=== PATIENT | male | born 1990 | race Caucasian/White ===

== ENCOUNTER 2021-07-27 08:39 | Emergency (ER) | payer BC ==
[~2021-07-27] VITALS: Ht 177.8 cm; Wt 99.7 kg
[2021-07-27 09:05] VITALS: BP 121/85
--- NOTE | 2021-07-27 10:37 | ED General ---
General Chief Complaint: COVID19 Suspect/Confirmed Stated Complaint: FATIGUE,FEVER,CHILLS,WEAKNESS,COUGH Nursing Triage Note: ARRIVES TO ED STATES HE NEEDSS A COVID TEST AND FEELS HE IS HAVING EMERGENT SYMPTOMS. C/O FATIGUE BELL HAD FEVER OF 100.5 LAST NIGHT, VERBALIZES HE HAS NOT TAKEN ANY TYLENOL OR IBUPROFEN BECAUSE HE HAS "TO BE FEVER FREE WITH OUT USING MEDICINE BEFORE HE CAN GO BACK TO WORK". Source of Information: Patient Exam Limitations: No Limitations (ROBB MCKEON APRN) History of Present Illness Date Seen by Provider: Jul 27, 2021 Time Seen by Provider: 10:00 Initial Comments Complains of fever and fatigue since last night unvaccinated. Timing/Duration: 1-2 Days Severity: Moderate Associated Systoms: Cough, Headaches (ROBB CMKEON APRN) Allergies and Home Medications Patient Home Medication List Home Medication List Reviewed: Yes (ROBB MCKEON APRN) Review of Systems Review of Systems Constitutional: see HPI, fever EENTM: see HPI Respiratory: see HPI, cough Cardiovascular: no symptoms reported Genitourinary: no symptoms reported Musculoskeletal: no symptoms reported Skin: no symptoms reported Psychiatric/Neurological: No Symptoms Reported Hematologic/Lymphatic: No Symptoms Reported Immunological/Allergic: no symptoms reported (ROBB MCKEON APRN) Past Sckqbnb-Deygrq-Zubftz Hx Patient Social History Tobacco Use?: Yes Smoking Status: Heavy Tobacco Smoker Use of E-Cig and/or Vaping dev: No Substance use?: No Alcohol Use?: Yes Alcohol Frequency: Once in a while Pt feels they are or have been: No (ROBB MCKEON APRN) Immunizations Up To Date Influenza Vaccine Up-to-Date: No; Not Current First/Initial COVID19 Vaccinat: DECLINED (ROBB MCKEON APRN) Physical Exam Vital Signs Vital Signs - First Documented 07/27/21 09:05 Temp 36.8 Pulse 96 Resp 18 B/P (MAP) 121/85 (97) Pulse Ox 96 O2 Delivery Room Air (THONY NAJERA MD) Vital Signs Capillary Refill : Less Than 3 Seconds (ROBB MCKEON APRN) Height, Weight, BMI Height: '" Weight: lbs. oz. kg; 31.00 BMI Method: General Appearance: No Apparent Distress, WD/WN Eyes: Bilateral Eye Normal Inspection, Bilateral Eye PERRL Neck: Full Range of Motion, Normal Inspection Respiratory: Normal Breath Sounds, No Accessory Muscle Use, No Respiratory Distress Cardiovascular: Regular Rate, Rhythm, Normal Peripheral Pulses Gastrointestinal: Normal Bowel Sounds, Non Tender, Soft Extremity: Normal Capillary Refill, Normal Inspection Neurologic/Psychiatric: Alert, Oriented x3 Skin: Normal Color, Warm/Dry (ROBB MCKEON APRN) Progress/Results/Core Measures Suspected Sepsis SIRS Temperature: Pulse: 96 Respiratory Rate: 18 Blood Pressure 121 /85 Mean: 97 (ROBB MCKEON APRN) Results/Orders Lab Results Laboratory Tests Test 07/27/21 09:14 Range/Units Influenza Type A (RT-PCR) Not Detected Not Detecte Influenza Type B (RT-PCR) Not Detected Not Detecte SARS-CoV-2 RNA (RT-PCR) Detected H Not Detecte (THONY NAJERA MD) My Orders Orders - THONY NAJERA MD Covid 19 Inhouse Test (07/27/21 08:45) Influenza A And B By Pcr (07/27/21 08:45) (THONY NAJERA MD) Vital Signs/I&O 07/27/21 07/27/21 09:05 10:44 Temp 36.8 Pulse 96 97 Resp 18 20 B/P (MAP) 121/85 (97) Pulse Ox 96 97 O2 Delivery Room Air Room Air (THONY NAJERA MD) Vital Signs/I&O Capillary Refill : Less Than 3 Seconds (ROBB MCKEON APRN) Blood Pressure Mean: 97 Departure Impression Primary Impression: COVID-19 Disposition: 01 HOME, SELF-CARE Condition: Stable Departure-Patient Inst. Decision time for Depature: 10:35 (ROBB MCKEON APRN) Referrals: NO,LOCAL PHYSICIAN (PCP/Family) Primary Care Physician Patient Instructions: COVID-19 Overview Add. Discharge Instructions: 1. Tylenol and ibuprofen for fever or pain. Expect to be ill for 1 to 2 weeks. Cough medicine as directed. Per the CDC's new guidelines after 5 days of home quarantine you can return to work as long as you wear mask. 10 days of quarantine however is a better and safer idea. All discharge instructions reviewed with patient and/or family. Voiced understanding. Work/School Note: Work Release Form Date Seen in the Emergency Department: Jul 27, 2021 Return to Work: Jul 31, 2021 ATTENDING PHYSICIAN NOTE: I was physically present as attending physician in the emergency department during the care of this patient, but I was not directly involved in the decision making or delivery of care for this patient. (THONY NAJERA MD) ROBB MCKEON APRN Jul 27, 2021 10:37 THONY NAJERA MD Jul 27, 2021 19:11
== END 2021-07-27 10:44 | disposition home or self-care (01) ==
LOC: ER 08:44
DX: U07.1 COVID-19 (principal); F17.290 Nicotine dependence, other tobacco product, uncomplicated
CPT/HCPCS: 87636; 99283

== ENCOUNTER 2021-12-09 16:27 | Emergency (ER) | payer BC ==
[~2021-12-09] VITALS: Ht 172 cm; Wt 113.0 kg
[2021-12-09] MEDS ORDERED: NS IV 1000 ML 1,000 ML IV STA (16:38)
[2021-12-09] MEDS ORDERED: fentaNYL INJ 100 MCG/2 ML AMP IVP STA (16:38)
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
[2021-12-09 16:45] LABS: BASOPHILS # (AUTO) 0.1 10^3/uL (0.0-0.1); BASOPHILS % (AUTO) 1 % (0-10); EOSINOPHILS # (AUTO) 0.1 10^3/uL (0.0-0.3); EOSINOPHILS % (AUTO) 1 % (0-10); HEMATOCRIT 48 % (40-54); HEMOGLOBIN 15.8 g/dL (13.3-17.7); LYMPHOCYTES # (AUTO) 2.8 10^3/uL (1.0-4.0); LYMPHOCYTES % (AUTO) 21 % (12-44); MEAN CORPUSCULAR HEMOGLOBIN 28 pg (25-34); MEAN CORPUSCULAR HGB CONC 33 g/dL (32-36); MEAN CORPUSCULAR VOLUME 84 fL (80-99); MEAN PLATELET VOLUME 10.1 fL (9.0-12.2); MONOCYTES % (AUTO) 8 % (0-12); NEUTROPHILS % (AUTO) 69 % (42-75); PLATELET COUNT 340 10^3/uL (130-400)
[2021-12-09 16:52] LABS: ALBUMIN 4.4 GM/DL (3.2-4.5)
[2021-12-09 16:53] LABS: POTASSIUM 3.9 MMOL/L (3.6-5.0)
[2021-12-09 16:54] LABS: CALCIUM 9.4 MG/DL (8.5-10.1)
[2021-12-09 16:55] LABS: TOTAL PROTEIN 7.5 GM/DL (6.4-8.2)
[2021-12-09 16:57] LABS: BILIRUBIN,TOTAL 0.3 MG/DL (0.1-1.0)
[2021-12-09 16:59] LABS: CREATININE SERUM 1.04 MG/DL (0.60-1.30)
[2021-12-09] MEDS ORDERED: TETANUS,DIPTH,PERTUSS P/F (BOOSTRIX) 0.5 ML VIAL IM ONE (17:00)
[2021-12-09] MEDS ORDERED: ONDANSETRON 4 MG/2 ML (SDV) Z0FRAN IVP ONE (17:30)
[2021-12-09] MEDS ORDERED: morphine INJ 10 MG/ML 1ML (SYR OR VIAL) IVP ONE (17:30)
[2021-12-09] MEDS ORDERED: ACHD5005 PO (18:00)
[2021-12-09 18:36] VITALS: BP 126/72
== END 2021-12-09 18:36 | disposition home or self-care (01) ==
LOC: EDUNIT# 16:27 → ER 16:29
DX: T24.212A Burn of second degree of left thigh, initial encounter (principal); T21.22XA Burn of second degree of abdominal wall, initial encounter; X11.1XXA Contact with running hot water, initial encounter
CPT/HCPCS: 36415; 80053; 85025; 90715

== ENCOUNTER 2022-11-03 15:32 | Emergency (ER) | payer BC ==
[~2022-11-03] VITALS: Ht 175.2 cm; Wt 113.0 kg
[~2022-11-03 15:32] MED LIST: ACHD5005 PO
[2022-11-03 16:14] LABS: BILIRUBIN,URINE NEGATIVE (NEGATIVE); CLARITY,URINE CLEAR; COLOR,URINE YELLOW; GLUCOSE, URINE (UA) NEGATIVE (NEGATIVE); KETONES,URINE NEGATIVE (NEGATIVE); LEUKOCYTE ESTERASE ,URINE NEGATIVE (NEGATIVE); NITRITE,URINE NEGATIVE (NEGATIVE); PH,URINE 7.5 (5-9); PROTEIN,URINE NEGATIVE (NEGATIVE)
[2022-11-03] MEDS ORDERED: LACTATED RINGERS 1,000 ML IV ONE (16:15)
[2022-11-03] MEDS ORDERED: KETOROLAC 30 MG/ML VIAL IVP ONE (16:15)
[2022-11-03 16:17] LABS: BASOPHILS # (AUTO) 0.1 10^3/uL (0.0-0.1); BASOPHILS % (AUTO) 0 % (0-10); EOSINOPHILS # (AUTO) 0.1 10^3/uL (0.0-0.3); EOSINOPHILS % (AUTO) 0 % (0-10); HEMATOCRIT 45 % (40-54); HEMOGLOBIN 15.1 g/dL (13.3-17.7); LYMPHOCYTES # (AUTO) 1.8 10^3/uL (1.0-4.0); LYMPHOCYTES % (AUTO) 11 % (12-44); MEAN CORPUSCULAR HEMOGLOBIN 28 pg (25-34); MEAN CORPUSCULAR HGB CONC 33 g/dL (32-36); MEAN CORPUSCULAR VOLUME 84 fL (80-99); MEAN PLATELET VOLUME 10.4 fL (9.0-12.2); MONOCYTES # (AUTO) 1.2 10^3/uL (0.0-1.0); MONOCYTES % (AUTO) 7 % (0-12); NEUTROPHILS % (AUTO) 82 % (42-75); PLATELET COUNT 278 10^3/uL (130-400); WHITE BLOOD COUNT 17.2 10^3/uL (4.3-11.0)
[2022-11-03 16:30] LABS: ALBUMIN 4.2 GM/DL (3.2-4.5); BACTERIA,URINE NEGATIVE /HPF; RBC,URINE RARE /HPF; WBC,URINE 0-2 /HPF
[2022-11-03 16:33] LABS: TOTAL PROTEIN 7.2 GM/DL (6.4-8.2)
[2022-11-03 16:34] LABS: BILIRUBIN,TOTAL 0.8 MG/DL (0.1-1.0)
[2022-11-03 16:36] LABS: CREATININE SERUM 1.08 MG/DL (0.60-1.30)
[2022-11-03 16:49] LABS: BAND NEUTROPHILS 0 %; BASOPHILS % (MANUAL) 0 %; EOSINOPHILS % (MANUAL) 0 %; LYMPHOCYTES % (MANUAL) 8 %; MONOCYTES % (MANUAL) 6 %; NEUTROPHILS % (MANUAL) 86 %; RBC MORPH NORMAL
--- NOTE | 2022-11-03 17:21 | ED GU-Male ---
General Chief Complaint: Fever-Adult/Adol Stated Complaint: FEVER, JOINT PAIN Nursing Triage Note: ARRIVES TO ROOM 1 WITH C/O GENERALIZED JOINT ACHES, FEVER AND DIFFICULTY /PAIN WITH URINATION. STATES STARTED THIS MORNING. VERBALIZES HAD A TEMPERATURE OF 104.3 AT HOME. Source: patient Exam Limitations: no limitations History of Present Illness Date Seen by Provider: Nov 03, 2022 Time Seen by Provider: 15:40 Allergies and Home Medications Allergies Coded Allergies: No Known Drug Allergies (Unverified , 12/09/21) Patient Home Medication List Hydrocodone/Acetaminophen (Hydrocodone-Acetamin 5-325 mg) 5 Mg-325 Mg Tablet, 1 TAB PO Q4H PRN for PAIN-MODERATE (5-7) Prescribed by: FADY QUISPE on 12/09/21 1800 Past Tejejyu-Tmihqh-Zyelpo Hx Patient Social History Tobacco Use?: No Use of E-Cig and/or Vaping dev: No Substance use?: No Alcohol Use?: No Pt feels they are or have been: No Immunizations Up To Date Influenza Vaccine Up-to-Date: Yes; Up-to-Date First/Initial COVID19 Vaccinat: DECLINED Second COVID19 Vaccination Herman: DECLINED Third COVID19 Vaccination Date: DECLINED Past Medical History Surgery/Hospitalization HX: PMH-DENIES SX-LT KNEE SCOPE, WISDOM TEETH Physical Exam Vital Signs Vital Signs - First Documented 11/03/22 15:40 Temp 37.6 Pulse 103 Resp 18 B/P (MAP) 141/84 (103) Pulse Ox 97 O2 Delivery Room Air Capillary Refill : Less Than 3 Seconds Height, Weight, BMI Height: '" Weight: lbs. oz. kg; 36.00 BMI Method: Progress/Results/Core Measures Suspected Sepsis SIRS Temperature: Pulse: 103 Respiratory Rate: 18 Laboratory Tests 11/03/22 15:50: White Blood Count 17.2H Blood Pressure 141 /84 Mean: 103 Laboratory Tests 11/03/22 15:50: Creatinine 1.08, Platelet Count 278, Total Bilirubin 0.8 Results/Orders Lab Results Laboratory Tests Test 11/03/22 15:50 11/03/22 16:23 Range/Units White Blood Count 17.2 H 4.3-11.0 10^3/uL Red Blood Count 5.39 4.30-5.52 10^6/uL Hemoglobin 15.1 13.3-17.7 g/dL Hematocrit 45 40-54 % Mean Corpuscular Volume 84 80-99 fL Mean Corpuscular Hemoglobin 28 25-34 pg Mean Corpuscular Hemoglobin Concent 33 32-36 g/dL Red Cell Distribution Width 13.7 10.0-14.5 % Platelet Count 278 130-400 10^3/uL Mean Platelet Volume 10.4 9.0-12.2 fL Immature Granulocyte % (Auto) 0 % Neutrophils (%) (Auto) 82 H 42-75 % Lymphocytes (%) (Auto) 11 L 12-44 % Monocytes (%) (Auto) 7 0-12 % Eosinophils (%) (Auto) 0 0-10 % Basophils (%) (Auto) 0 0-10 % Neutrophils # (Auto) 14.0 H 1.8-7.8 10^3/uL Lymphocytes # (Auto) 1.8 1.0-4.0 10^3/uL Monocytes # (Auto) 1.2 H 0.0-1.0 10^3/uL Eosinophils # (Auto) 0.1 0.0-0.3 10^3/uL Basophils # (Auto) 0.1 0.0-0.1 10^3/uL Immature Granulocyte # (Auto) 0.1 0.0-0.1 10^3/uL Neutrophils % (Manual) 86 % Lymphocytes % (Manual) 8 % Monocytes % (Manual) 6 % Eosinophils % (Manual) 0 % Basophils % (Manual) 0 % Band Neutrophils 0 % Blood Morphology Comment NORMAL Urine Color YELLOW Urine Clarity CLEAR Urine pH 7.5 5-9 Urine Specific [place] 1.010 L 1.016-1.022 Urine Protein NEGATIVE NEGATIVE Urine Glucose (UA) NEGATIVE NEGATIVE Urine Ketones NEGATIVE NEGATIVE Urine Nitrite NEGATIVE NEGATIVE Urine Bilirubin NEGATIVE NEGATIVE Urine Urobilinogen 1.0 < = 1.0 MG/DL Urine Leukocyte Esterase NEGATIVE NEGATIVE Urine RBC (Auto) NEGATIVE NEGATIVE Urine RBC RARE /HPF Urine WBC 0-2 /HPF Urine Squamous Epithelial Cells NONE /HPF Urine Crystals NONE /LPF Urine Bacteria NEGATIVE /HPF Urine Casts NONE /LPF Urine Mucus NEGATIVE /LPF Urine Culture Indicated NO Sodium Level 140 135-145 MMOL/L Potassium Level 4.0 3.6-5.0 MMOL/L Chloride Level 105 98-107 MMOL/L Carbon Dioxide Level 22 21-32 MMOL/L Anion Gap 13 5-14 MMOL/L Blood Urea Nitrogen 9 7-18 MG/DL Creatinine 1.08 0.60-1.30 MG/DL Estimat Glomerular Filtration Rate 93 BUN/Creatinine Ratio 8 Glucose Level 98 70-105 MG/DL Calcium Level 9.0 8.5-10.1 MG/DL Corrected Calcium 8.8 8.5-10.1 MG/DL Total Bilirubin 0.8 0.1-1.0 MG/DL Aspartate Amino Transf (AST/SGOT) 35 H 5-34 U/L Alanine Aminotransferase (ALT/SGPT) 58 H 0-55 U/L Alkaline Phosphatase 74 40-136 U/L C-Reactive Protein High Sensitivity 1.26 H 0.00-0.50 MG/DL Total Protein 7.2 6.4-8.2 GM/DL Albumin 4.2 3.2-4.5 GM/DL Influenza Type A (RT-PCR) Not Detected Not Detecte Influenza Type B (RT-PCR) Not Detected Not Detecte SARS-CoV-2 RNA (RT-PCR) Not Detected Not Detecte My Orders Orders - THONY NAJERA MD Covid 19 Inhouse Test (11/03/22 15:40) Influenza A And B By Pcr (11/03/22 15:40) Cbc With Automated Diff (11/03/22 16:08) Comprehensive Metabolic Panel (11/03/22 16:08) Hs C Reactive Protein (11/03/22 16:08) Ua Culture If Indicated (11/03/22 16:08) Ed Iv/Invasive Line Start (11/03/22 16:08) Lactated Ringers (Lr 1000 Ml Iv Solution (11/03/22 16:15) Ketorolac Injection (Toradol Injection) (11/03/22 16:15) Manual Differential (11/03/22 15:50) Bladder Scan (11/03/22 17:04) Pelvis 1 To 2 Views (11/03/22 17:23) Medications Given in ED Current Medications Medications Dose Ordered Sig/Mandy Route Start Time Stop Time Status Last Admin Dose Admin Ketorolac Tromethamine 30 mg ONCE ONCE IVP 11/03/22 16:15 11/03/22 16:16 DC 11/03/22 16:16 30 MG Lactated Ringer's 1,000 ml @ 0 mls/hr Q0M ONCE IV 11/03/22 16:15 11/03/22 16:16 DC 11/03/22 16:16 1,000 MLS/HR Vital Signs/I&O 11/03/22 15:40 Temp 37.6 Pulse 103 Resp 18 B/P (MAP) 141/84 (103) Pulse Ox 97 O2 Delivery Room Air Capillary Refill : Less Than 3 Seconds Blood Pressure Mean: 103 Departure Impression Primary Impression: Dysuria Disposition: 01 HOME, SELF-CARE Condition: Improved Departure-Patient Inst. Decision time for Depature: 18:23 Referrals: NO,LOCAL PHYSICIAN (PCP/Family) Primary Care Physician Patient Instructions: Dysuria, Adult (DC), Kidney Stone, Adult ED Add. Discharge Instructions: The exact cause of your pain is uncertain. There does not appear to be any evidence of infection in your urine. You did have an elevation in your white blood cell count on the blood work. This should be followed in the clinic setting with repeat lab work in the near future. Your pain could be due to a possible kidney stone or even a viral illness. Strain your urine and bring any particles or stones collected to your follow-up appointment. You may take Tylenol (acetaminophen) up to 1000 mg every 6 hours as needed and/or ibuprofen up to 600 mg every 6 hours as needed for treatment of pain. And there was no obstruction of your urinary tract as the scan of your bladder showed that it was empty after urinating. Drink plenty of clear liquids to continue flushing the urinary tract. Follow-up with a primary care provider or urologist as soon as possible. Please call tomorrow to schedule the appointment. Return to the ER if you have worsening symptoms despite following these instructions. All discharge instructions reviewed with patient and/or family. Voiced understanding. Copy Copies To 1: [facility]/THONY WALTER MD Nov 03, 2022 17:20
--- NOTE | 2022-11-03 17:59 | Diagnostic Imaging Report ---
INDICATION: Penile pain. COMPARISON: None. FINDINGS: Single frontal radiographic view of the lower pelvis and proximal femurs were obtained and show no fracture, dislocation or other acute bony abnormality. Joint spaces are well maintained throughout. The soft tissues appear unremarkable. Extraosseous calcification is noted to the right lateral midline and may be on the basis of pelvic phleboliths. Distal ureteral calculus is also a consideration. No other unexpected extraosseous calcification or radiopaque foreign body is seen. IMPRESSION: 1. Possible right-sided pelvic phlebolith versus distal ureteral calculus. 2. No other unexpected extraosseous calcification or radiopaque foreign body. Dictated by: Dictated on workstation # [id number]
[2022-11-03 19:00] VITALS: BP 117/64
== END 2022-11-03 19:01 | disposition home or self-care (01) ==
LOC: EDUNIT# 15:32 → ER 15:35
DX: R30.0 Dysuria (principal); Z20.822 Contact with and (suspected) exposure to COVID-19; Z28.310 Unvaccinated for COVID-19
CPT/HCPCS: 36415; 72170; 80053; 81000; 85007; 85027; 86141; 87077; 87088; 87186; 87491; 87591; 87636